=== PATIENT | female | born 2000 | race Two or more races ===

== ENCOUNTER 2018-09-19 23:03 | Emergency (ER) | payer MEDICAID ==
[~2018-09-19] VITALS: Ht 165.1 cm; Wt 66.2 kg
[2018-09-20 00:54] LABS: Basophils # (auto) 0.1 uL; Basophils % (auto) 0.5 % (0.0-2.0); Eosinophils # (auto) 0 uL; Eosinophils % (auto) 0.4 % (0.0-7.0); Hematocrit 41.1 % (36.0-46.0); Hemoglobin 14.1 g/dL (12.2-16.2); Lymphocytes # (auto) 2.2 uL; Lymphocytes % (auto) 19.3 % (10.0-50.0); Mean Corpuscular Hemoglobin 31.4 pg (28.0-32.0); Mean Corpuscular Hgb Conc. 34.3 g/dL (32.0-36.0); Mean Corpuscular Volume 91.8 fL (80.0-100.0); Monocytes # (auto) 0.7 uL; Neutrophils # (auto) 8.6 uL; Neutrophils % (auto) 73.8 % (37.0-80.0); Platelet Count (auto) 242 10^3/uL (140-450); Red Blood Cells 4.48 10^6/uL (4.0-5.20); Red Cell Distribution Width 12.5 % (11.8-14.3); White Blood Cell 11.7 10^3/uL (4.4-10.8)
[2018-09-20 01:04] LABS: Urine Bacteria FEW /hpf (None Seen); Urine Blood Negative /uL (Negative); Urine Mucus FEW (None Seen); Urine Specific Gravity 1.023 (1.001-1.035); Urine WBC 2 /hpf (0 - 5)
[2018-09-20 01:05] LABS: Albumin 3.6 g/dL (3.4-5.0); BUN/Creatinine Ratio 9.3; Calcium 8.6 mg/dL (8.5-10.1); Potassium 3.4 mmol/L (3.5-5.1)
[2018-09-20 01:08] LABS: Bilirubin, Total 0.5 mg/dL (0.2-1.0)
[2018-09-20 01:09] LABS: Total Protein 7.4 g/dL (6.4-8.2)
[2018-09-20] MEDS ORDERED: SODIUM CHLORIDE 0.9% 1,000 ML IV ONE (02:15)
[2018-09-20 02:33] LABS: INR 0.89 (0.9-1.15); Prothrombin Time 9.6 sec (9.27-12.13)
[2018-09-20 06:30] VITALS: BP 94/53
[2018-09-20] MEDS ORDERED: POTASSIUM EFFERVESENT TAB 25 MEQ PO ONE (07:45)
== END 2018-09-20 08:16 | disposition home or self-care (01) ==
LOC: ER 23:14
DX: O99.342 Other mental disorders complicating pregnancy, second trimester (principal); F41.9 Anxiety disorder, unspecified; O99.282 Endocrine, nutritional and metabolic diseases complicating pregnancy, second trimester; E87.6 Hypokalemia; Z3A.19 19 weeks gestation of pregnancy
CPT/HCPCS: 36415; 76805; 80053; 81001; 81025; 83880; 84443; 84484; 84702; 85025; 85610; 85730; 93005; 94761; 99284; J7030

== ENCOUNTER 2018-12-28 07:50 | Observation (INO) | payer MEDICAID ==
[2018-12-28] MEDS ORDERED: PREN-96 PO (10:54)
[2018-12-28] MEDS ORDERED: ACET-6 PO (10:54)
== END 2018-12-28 09:51 | disposition home or self-care (01) | DRG 566 ==
LOC: LDRP 07:50
PROVIDERS: ADMIT Specialist; ATTEND Specialist
DX: O36.0130 Maternal care for anti-D [Rh] antibodies, third trimester, not applicable or unspecified (principal); Z3A.32 32 weeks gestation of pregnancy
CPT/HCPCS: 59025; 76818; 81002; G0378

== ENCOUNTER 2019-01-04 10:31 | Observation (INO) | payer MEDICAID ==
[~2019-01-04] VITALS: Ht 165.1 cm; Wt 73.0 kg
[~2019-01-04 10:31] MED LIST: ACET-6 PO; PREN-96 PO
[2019-01-04] MEDS ORDERED: LACTATED RINGER'S 1,000 ML IV ONE (12:00)
[2019-01-04] MEDS: TERBUTALINE SULFATE 1 MG/ML 1ML VIAL SC SCH ×3 (12:08→13:46)
[2019-01-05] MEDS ORDERED: NIF10C GT (17:47)
== END 2019-01-04 14:45 | disposition home or self-care (01) | DRG 566 ==
LOC: LDRP 10:31
PROVIDERS: ADMIT Specialist; ATTEND Specialist
DX: O36.0130 Maternal care for anti-D [Rh] antibodies, third trimester, not applicable or unspecified (principal); Z3A.33 33 weeks gestation of pregnancy
CPT/HCPCS: 59025; 76818; 81002; 96372; G0378; J3105; 96361

== ENCOUNTER 2019-01-04 18:10 | Observation (INO) | payer MEDICAID ==
[2019-01-04] MEDS ORDERED: NIFEdipine 10 MG CAP ONE (18:24)
[2019-01-04] MEDS ORDERED: BETAMETHASONE ACET (6MG/ML) 5ML VIAL ONE (18:24)
[2019-01-04] MEDS ORDERED: BETAMETHASONE ACET (6MG/ML) 5ML VIAL IM ONE (18:30)
[2019-01-04] MEDS ORDERED: NIFEdipine 10 MG CAP PO ONE (18:30)
[2019-01-05] MEDS ORDERED: NIF10C PO (17:47)
== END 2019-01-04 19:50 | disposition home or self-care (01) | DRG 563 ==
LOC: LDRP 18:10
PROVIDERS: ADMIT Specialist; ATTEND Specialist
DX: O60.03 Preterm labor without delivery, third trimester (principal); Z3A.33 33 weeks gestation of pregnancy
CPT/HCPCS: 59025; 81002; 96372; G0378; J0702

== ENCOUNTER 2019-01-05 17:05 | Observation (INO) | payer MEDICAID ==
[~2019-01-05 17:05] MED LIST changes: -ACET-6 PO
[2019-01-05] MEDS ORDERED: BETAMETHASONE ACET (6MG/ML) 5ML VIAL IM ONE (17:45)
[2019-01-05] MEDS ORDERED: NIF10C GT (17:47)
== END 2019-01-05 18:20 | disposition home or self-care (01) | DRG 563 ==
LOC: LDRP 17:05
PROVIDERS: ADMIT Specialist; ATTEND Specialist
DX: O60.03 Preterm labor without delivery, third trimester (principal); Z3A.33 33 weeks gestation of pregnancy
CPT/HCPCS: 59025; 81002; 96372; G0378; J0702

== ENCOUNTER 2019-01-11 10:43 | Observation (INO) | payer MEDICAID ==
[~2019-01-11 10:43] MED LIST changes: +NIF10C PO
== END 2019-01-11 12:30 | disposition home or self-care (01) | DRG 563 ==
LOC: LDRP 10:43
PROVIDERS: ADMIT Obstetrics & Gynecology; ATTEND Obstetrics & Gynecology
DX: O60.03 Preterm labor without delivery, third trimester (principal); O36.0130 Maternal care for anti-D [Rh] antibodies, third trimester, not applicable or unspecified; Z3A.34 34 weeks gestation of pregnancy
CPT/HCPCS: 59025; 76818; 81002; G0378

== ENCOUNTER 2019-01-16 13:10 | Observation (INO) | payer MEDICAID ==
[2019-01-16] MEDS ORDERED: ACET-1079 PO (13:48)
== END 2019-01-16 14:30 | disposition home or self-care (01) | DRG 566 ==
LOC: LDRP 13:10
PROVIDERS: ADMIT Obstetrics & Gynecology; ATTEND Obstetrics & Gynecology
DX: O36.0130 Maternal care for anti-D [Rh] antibodies, third trimester, not applicable or unspecified (principal); Z3A.35 35 weeks gestation of pregnancy
CPT/HCPCS: 59025; 76818; 81002; G0378

== ENCOUNTER 2019-01-18 14:50 | Observation (INO) | payer MEDICAID ==
[~2019-01-18 14:50] MED LIST changes: +ACET-1079 PO
== END 2019-01-18 16:28 | disposition home or self-care (01) | DRG 566 ==
LOC: LDRP 14:50
PROVIDERS: ADMIT Obstetrics & Gynecology; ATTEND Obstetrics & Gynecology
DX: O36.0130 Maternal care for anti-D [Rh] antibodies, third trimester, not applicable or unspecified (principal); O26.893 Other specified pregnancy related conditions, third trimester; R51 Headache; Z3A.35 35 weeks gestation of pregnancy
CPT/HCPCS: 59025; 76818; 81002; G0378

== ENCOUNTER 2019-01-23 14:05 | Observation (INO) | payer MEDICAID ==
[~2019-01-23] VITALS: Ht 165.1 cm; Wt 77.1 kg
[2019-01-23] MEDS ORDERED: BETAMETHASONE ACET (6MG/ML) 5ML VIAL IM SCH (15:15)
== END 2019-01-23 15:50 | disposition home or self-care (01) | DRG 566 ==
LOC: LDRP 14:05
PROVIDERS: ADMIT Obstetrics & Gynecology; ATTEND Obstetrics & Gynecology
DX: O36.0130 Maternal care for anti-D [Rh] antibodies, third trimester, not applicable or unspecified (principal); O60.03 Preterm labor without delivery, third trimester; O26.853 Spotting complicating pregnancy, third trimester; Z3A.36 36 weeks gestation of pregnancy
CPT/HCPCS: 59025; 76818; 81002; G0378

== ENCOUNTER 2019-01-26 01:36 | Inpatient (IN) | payer MEDICAID ==
[~2019-01-26] VITALS: Ht 165.1 cm; Wt 76.7 kg
[2019-01-26] MEDS ORDERED: LACT. RINGERS/OXYTOCIN 20UNITS 1,000 ML IV SCH ×2 (02:31→07:19)
[2019-01-26] MEDS: LACTATED RINGER'S 1,000 ML IV SCH ×3 (02:41→15:12)
[2019-01-26] MEDS ORDERED: PHISODERM TOP SOLN 240ML BTL TOP PRN (02:45)
[2019-01-26] MEDS ORDERED: NALBUPHINE HCL 10 MG/1ml INJECTION IV PRN (02:45)
[2019-01-26] MEDS ORDERED: LIDOCAINE 2%HCL (LOCAL ANESTH.) INJ 20ML MDV ID ONE (02:45)
[2019-01-26] MEDS ORDERED: METHYLERGONOVINE MALEATE 0.2 MG/ML AMP IM PRN (02:45)
[2019-01-26] MEDS ORDERED: WITCH HAZEL-GLYCERIN PAD TOP PRN (02:45)
[2019-01-26] MEDS ORDERED: DERMOPLAST 60ML BOTTLE TOP PRN (02:45)
[2019-01-26] MEDS ORDERED: CARBOPROST TROMETHAMINE 250 MCG/1ML VIAL IM PRN (02:45)
[2019-01-26] MEDS ORDERED: PENICILLIN G POT 5MIL/D5 50ML 50 ML IV ONE ×2 (02:47→03:00)
[2019-01-26 03:22] LABS: Basophils # (auto) 0 uL; Basophils % (auto) 0.3 % (0.0-2.0); Eosinophils # (auto) 0.1 uL; Eosinophils % (auto) 0.9 % (0.0-7.0); Hematocrit 37.8 % (36.0-46.0); Hemoglobin 13.1 g/dL (12.2-16.2); Lymphocytes # (auto) 2.1 uL; Lymphocytes % (auto) 17.8 % (10.0-50.0); Mean Corpuscular Hemoglobin 31.9 pg (28.0-32.0); Mean Corpuscular Hgb Conc. 34.7 g/dL (32.0-36.0); Mean Corpuscular Volume 91.9 fL (80.0-100.0); Monocytes # (auto) 0.9 uL; Monocytes % (auto) 7.4 % (0.0-12.0); Neutrophils # (auto) 8.7 uL; Neutrophils % (auto) 73.6 % (37.0-80.0); Platelet Count (auto) 252 10^3/uL (140-450); Red Blood Cells 4.11 10^6/uL (4.0-5.20); Red Cell Distribution Width 12.5 % (11.8-14.3); White Blood Cell 11.8 10^3/uL (4.4-10.8)
[2019-01-26 03:38] LABS: INR 0.83 (0.9-1.15); Partial Thromboplastin Time 25.9 sec (23.78-33.04)
[2019-01-26 03:44] LABS: Albumin 2.9 g/dL (3.4-5.0); Calcium 8.9 mg/dL (8.5-10.1)
[2019-01-26 03:47] LABS: BUN/Creatinine Ratio 15.8; Bilirubin, Total 0.3 mg/dL (0.2-1.0); Total Protein 6.6 g/dL (6.4-8.2)
[2019-01-26 03:59] LABS: Urine Bacteria FEW /hpf (None Seen); Urine Blood Negative /uL (Negative); Urine Specific Gravity 1.006 (1.001-1.035); Urine WBC 22 /hpf (0 - 5)
[2019-01-26 04:01] LABS: Alcohol, Urine < 3.0 mg/dL (0-5); Amphetamine Screen, Urine NEGATIVE (NEGATIVE); Barbiturate Scree,Urine NEGATIVE (NEGATIVE); Benzodiazephine Screen, Urine NEGATIVE (NEGATIVE); Cannabinoid Screen, Urine NEGATIVE (NEGATIVE); Cocaine Screen, Urine NEGATIVE (NEGATIVE); Opiate Scree,Urine NEGATIVE (NEGATIVE); Phencyclidine Screen, Urine NEGATIVE (NEGATIVE)
[2019-01-26] MEDS: PENICILLIN G POTASSIUM 2,500,000 UNITS in D5W 5% 50 ML IV SCH ×3 (07:26→16:30)
[2019-01-26] MEDS ORDERED: TERBUTALINE SULFATE 1 MG/ML 1ML VIAL SC PRN (07:30)
[2019-01-26] MEDS ORDERED: LACTATED RINGER'S 500 ML IV ONE (07:48)
[2019-01-26] MEDS ORDERED: LACTATED RINGER'S 1,000 ML IV ONE (07:48)
[2019-01-26] MEDS ORDERED: fentaNYL CITRATE 100 MCG/2 ML VL IV ONE (08:00)
[2019-01-26] MEDS ORDERED: LIDOCAINE HCL 2 %PF INJ 10ML AMP IJ ONE (08:00)
[2019-01-26] MEDS ORDERED: ePHEDrine SULFATE 50 MG/ML AMP IV ONE (08:00)
[2019-01-26] MEDS ORDERED: NALOXONE HCL 0.4 MG/ML VIAL IV ONE (08:00)
[2019-01-26] MEDS ORDERED: fentaNYL W ROPIVACAINE 150 ML EPI SCH (08:00)
[2019-01-26] MEDS ORDERED: LIDOCAINE W/ EPINEPHRINE 1 % INJ 30ML ONE (08:38)
[2019-01-26] MEDS ORDERED: ONDANSETRON HCL 4 MG/2 ML VIAL ONE (18:38)
[2019-01-26] MEDS ORDERED: ONDANSETRON HCL 4 MG/2 ML VIAL IV PRN (18:45)
[2019-01-26 23:00] VITALS: BP 98/57
[2019-01-27] MEDS: IBUPROFEN 600 MG TAB PO PRN ×3 (01:12→18:38)
[2019-01-27] MEDS ORDERED: ACETAMINOPHEN 325 MG TAB PO PRN (01:15)
[2019-01-27 02:57] VITALS: BP 100/50
[2019-01-27 06:06] LABS: RPR Non Reactive (Non Reactive)
[2019-01-27 07:00] VITALS: BP 92/52
[2019-01-27 11:00] VITALS: BP 99/53
[2019-01-27 15:00] VITALS: BP 106/59
[2019-01-27 18:52] VITALS: BP 117/55
[2019-01-27 22:55] VITALS: BP 106/57
[2019-01-28] MEDS: IBUPROFEN 600 MG TAB PO PRN ×2 (01:10→04:43)
[2019-01-28 03:00] VITALS: BP 94/56
[2019-01-28 06:40] VITALS: BP 90/48
[2019-01-28] MEDS ORDERED: TETANUS-DIPTH-ACEL PERTUSSIS 0.5ML SYRG IM ONE (09:00)
[2019-01-28 11:13] VITALS: BP 111/65
== END 2019-01-28 11:40 | disposition home or self-care (01) | DRG 560 ==
LOC: OBSVTOIN 01:36 → LDRP 01:36
PROVIDERS: ADMIT Specialist; ATTEND Specialist
PROC: 10E0XZZ Delivery of Products of Conception, External Approach (ICD-10-PCS; principal; 2019-01-26)
PROC: 3E0R3BZ Introduction of Anesthetic Agent into Spinal Canal, Percutaneous Approach (ICD-10-PCS; 2019-01-26)
PROC: 00HU33Z Insertion of Infusion Device into Spinal Canal, Percutaneous Approach (ICD-10-PCS; 2019-01-26)
PROC: 0HQ9XZZ Repair Perineum Skin, External Approach (ICD-10-PCS; 2019-01-26)
DX: O42.913 Preterm premature rupture of membranes, unspecified as to length of time between rupture and onset of labor, third trimester (principal); O70.0 First degree perineal laceration during delivery; O71.82 Other specified trauma to perineum and vulva; Z37.0 Single live birth; Z3A.36 36 weeks gestation of pregnancy
CPT/HCPCS: 36415; 51702; 59025; 59409; 62282; 80053; 80307; 81001; 81002; 85025; 85610; 85730; 86592; 86850; 86900; 86901; 90715; 96361; 96365; 96366; 96372; 96374; G0378; J2405; J2540; J2590; J3010; J7060

== ENCOUNTER 2025-02-18 14:41 | Emergency (ER) | payer MEDICAID ==
[~2025-02-18] VITALS: Ht 165.1 cm; Wt 78.7 kg
[~2025-02-18 14:41] MED LIST changes: -NIF10C PO
[2025-02-18 15:34] LABS: Urine Bacteria None Seen /hpf (None Seen)
[2025-02-18 16:00] LABS: Urine Blood 2+ /uL (Negative); Urine Clarity Clear (Clear); Urine Color Light-Yellow (Yellow); Urine Mucus FEW (None Seen); Urine Protein, UAD Negative (Negative); Urine Specific Gravity 1.022 (1.001-1.035); Urine Squamous Epithelial Cell FEW /hpf (<5); Urine Urobilinogen Normal (Negative); Urine WBC 2 /HPF (0-5); Urine pH 5.5 (5.0-9.0)
--- NOTE | 2025-02-18 19:13 | DVH ---
OB ULTRASOUND US OB ULTRASOUND COMP LESS 14WK HISTORY: vag bleed TECHNIQUE: US OB ULTRASOUND COMP LESS 14WKS Multiple real-time grayscale sonographic images of the pelvis with duplex Doppler color flow, spectral and M-mode analysis. TRANSDUCERS: Transabdominal FINDINGS: The uterus measures 9.9 x 6.6 x 6.1 cm The cervix not measured Right ovary measures 2.5 x 1.9 x 1.2 cm. with normal Doppler color flow. Right ovarian volume is 2.8 3 cc. Left ovary measures 3.6 x 2 x 1.9 cm. with normal Doppler color flow. Ovarian volume is 7.08 cc in t he left ovary is a 1.3 x 1.1 by 1 cm anechoic lesion most likely a follicle There is a possible gestational sac in the endometrium measuring 3.23 cm. This would be consistent wi th 8 weeks 2 days however there is no pole heart rate. Most likely represents an anamniot ic gestational sac or pseudo gestational sac. IMPRESSION: 1. Possible gestational sac measuring 3.23 cm with no pole or heart rate. Recommend follo w-up study.
--- NOTE | 2025-02-18 19:45 | ED.PDOC ---
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 Denies any cramping. States it started as light bleeding then continued to progress to get mildly heavier. Patient states she was six weeks . She was seen by doctors and last week. States she was A2 Chief Complaint: Vaginal Bleed Time Seen by MD: 15:21 Reviewed Notes: Nurses Notes Allergies: Coded Allergies: NO KNOWN ALLERGIES (Unverified , 09/19/18) Home Meds Reported Medications Acetaminophen (Tylenol) 325 Mg Tb, 325 MG PO PRN for headache 01/16/19 Vit W/ Ferrous Fumara ( One Daily) Daily Tab, 1 TAB PO DAILY, #90 TAB 3 Refills 12/28/18 Information Source: Patient Past Medical History PAST MEDICAL HISTORY: Denies Surgical History: Denies all surgeries FINANCE LEAD History: No Pertinent FINANCE LEAD History Family History Family History: Unobtainable Social History Smoker: Non-Smoker Alcohol: Denies ETOH Use Drugs: Denies Drug Use Lives In: Home Constitutional: denies: chills, diaphoresis, fatigue, fever, malaise, sweats, weakness, others EENTM: denies: blurred vision, double vision, ear bleeding, ear discharge, ear drainage, ear pain, ear ringing, eye pain, eye redness, hearing loss, mouth madeleine n, mouth swelling, nasal discharge, nose bleeding, nose congestion, nose pain, photophobia, tearing, throat pain, throat swelling, voice changes, others Respiratory: denies: cough, hemoptysis, orthopnea, SOB at rest, shortness of breath, SOB with excertion, stridor, wheezing, others Cardiovascular: denies: chest pain, dizzy spells, diaphoresis, Dyspnea on exertion, edema, irregular heart beat, left arm pain, lightheadedness, palpitations, PND, syncope, others Gastrointestinal: denies: abdomen distended, abdominal pain, blood streaked bowels, constipated, diarrhea, dysphagia, difficulty swallowing, hematemesis, melena, nausea, poor appetite, poor fluid intake, rectal bleeding, rectal pain, vomiting, others Genitourinary: reports: abnormal vagina bleeding; denies: burning, dyspareunia, dysuria, flank pain, frequency, hematuria, incontinence, pain, , vagina discharge, urgency, others Neurological: denies: dizziness, fainting, headache, left sided numbness, left sided weakness, numbness, paresthesia, pre-existing deficit, right sided numbness, right sided weakness, seizure, speech problems, tingling, tremors, weakness, others Musculoskeletal: denies: back pain, gout, joint pain, joint swelling, muscle pain, muscle stiffness, neck pain, others Integumetry: denies: bruises, change in color, change in hair/nails, dryness, laceration, lesions, lumps, rash, wounds, others Allergic/Immunocompromised: denies: Difficulty Healing, Frequent Infections, Hives, Itching, others Hematologic/Lymphatic: denies: anemia, blood clots, easy bleeding, easy bruisin g, swollen glands, others Physical Exam General Appearance: No Apparent Distress, Normal HEENT: Normal ENT Inspection, Pharynx Normal, TMs Normal Neck: Full Range of Motion, Non-Tender, Normal, Normal Inspection Respiratory: Chest Non-Tender, Lungs Clear, No Accessory Muscle Use, No Respiratory Distress, Normal Breath Sounds Cardiovascular: No Edema, No JVD, No Murmur, No Gallop, Normal Peripheral Pulses, Regular Rate/Rhythm Breast Exam: Deferred Gastrointestinal: No Organomegaly, Non Tender, No Pulsatile Mass, Normal Bowel Sounds, Soft Genitalia: Deferred Pelvic: Deferred Rectal: Deferred Extremities: No calf tenderness, Normal capillary refill, Normal inspection, Normal range of motion, Non-tender, No pedal edema Musculoskeletal : Apperance: Normal Neurologic: Alert, recorder helper gravity prospecting II-XII nml as Tested, No Motor Deficits, Normal Affect, Normal Mood, No Sensory Deficits Cerebellar Function: Normal Reflexes: Normal Skin: Dry, Normal Color, Warm Lymphatic: No Adenopathy Was a procedure done? Was a procedure done?: No Differential Diagnosis (FINANCE LEAD) Vaginal Bleeding: - Complete, - Threatened, Ectopic X-Ray, Labs, Meds, VS Vital Signs Date Time Temp Pulse Resp B/P (MAP) Pulse Ox O2 Delivery O2 Flow Rate FiO2 02/18/25 14:59 98.0 98 80 121/86 (98) 97 98.0 Lab Test 02/18/25 16:19 02/18/25 15:14 Range/Units Beta HCG, Quantitative 3314.3 H 1.5-4.2 mIU/mL Urine Color Light-yellow Yellow Urine Clarity Clear Clear Urine pH 5.5 5.0-9.0 Urine Specific [place] 1.022 1.001-1.035 Urine Protein Negative Negative Urine Ketones Negative Negative Urine Blood 2+ H Negative /uL Urine Nitrite Negative Negative Urine Bilirubin Negative Negative Urine Urobilinogen Normal Negative mg/dL Urine Leukocyte Esterase Negative Negative /uL Urine RBC 4 0 - 4 /hpf Urine Microscopic WBC 2 0-5 /HPF Urine Squamous Epithelial Cells Few <5 /hpf Urine Calcium Oxalate Crystals Mod None Seen Urine Bacteria None seen None Seen /hpf Urine Mucus Few None Seen Urine Glucose Normal Normal mg/dL X-Ray, Labs, Meds, VS Comment Imaging: X-rays and CT scans were reviewed and interpreted by this provider, imaging shows no fractures and no pathological disease. Pending radiology review. Laboratory: Labs reviewed and interpreted by this provider. No significant ab normalities noted. Patient has prior medical visits reviewed. Med reconciliation performed Vital signs reviewed Time of 1ST Reevaluation: 19:44 Reevaluation 1ST: Unchanged Patient Education/Counseling: Diagnosis, Treatment, Need For Follow Up (Follow up with OBGYN next available appointment. Return to emergency department two days if unable to make appointment.) Family Education/Counseling: Diagnosis Departure 1 Departure Time of Disposition: 19:44 Impression: Primary Impression: Miscarriage at 8 to 28 weeks gestation Disposition: 01 HOME / SELF CARE / HOMELESS Condition: Fair Discharged With: Self Comments Follow up with OBGYN next available appointment. Return to the emergency department in the next 24 hours if symptoms worsen. Critical Care Note Critical Care Time?: No Stability Stability form required: No Heart Score Heart Score: Heart Score Response (Comments) Value History N/A 0 EKG N/A 0 Age N/A 0 Risk Factors N/A 0 Troponin N/A 0 Total 0 ARTURO SIMONP Feb 18, 2025 19:45
[2025-02-18 20:18] VITALS: BP 150/98; PULSE 100; RESP 21; TEMP 98.8; O2SAT 97
== END 2025-02-18 20:21 | disposition home or self-care (01) ==
LOC: ER 14:59
DX: O20.0 Threatened abortion (principal); Z3A.08 8 weeks gestation of pregnancy
CPT/HCPCS: 36415; 76801; 81001; 84702

== ENCOUNTER 2025-02-26 08:32 | Inpatient (IN) | payer MEDICAID ==
[~2025-02-26] VITALS: Ht 165.1 cm; Wt 76.2 kg
[2025-02-26] VITALS (21 sets, daily range): BP systolic 90–102; BP diastolic 40–63; PULSE 86–124; RESP 14–20; TEMP 98.3–99.4; O2SAT 97–100
--- NOTE | 2025-02-26 08:53 | ED.PDOC ---
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 Patient states, that she was told x1week ago to have miscarried; previous 10 week IUP. Patient reports, that of 0500 this morning (02/26/25) she has been bleeding with associated golf ball sized clots. Patient endorses, having an appointment with her OB-SPEECH AND HEARING DIRECTOR (Dr. Hernandez) today (02/26/25); was relayed to the ED for further evaluation due to symptoms. Upon arrival to the ED, transferred to ER bed 2 for further care. Chief Complaint: Vaginal Bleed Time Seen by MD: 08:44 Reviewed Notes: Nurses Notes, Medications, Allergies Allergies: Coded Allergies: NO KNOWN ALLERGIES (Unverified , 09/19/18) Home Meds Reported Medications Acetaminophen (Tylenol) 325 Mg Tb, 325 MG PO PRN for headache 01/16/19 Vit W/ Ferrous Fumara ( One Daily) Daily Tab, 1 TAB PO DAILY, #90 TAB 3 Refills 12/28/18 Information Source: Patient Mode of Arrival: Wheelchair Timing: Hours Prehospital treatment: None Severity: Moderate Vaginal Discharge: None Vaginal Lesions: None Bleeding Quality: Bright Red Vaginal Mass: Painful Onset Of Mass/Bleeding: Other (MISCARRIAGE) Sexual Activity: Last Consensual [place]: Unknown Control: None Blood Type: Unknown Symptoms of Possible : None Associated Signs and Symptoms: Vaginal Bleeding Past Medical History PAST MEDICAL HISTORY: Denies Surgical History: Denies all surgeries SPEECH AND HEARING DIRECTOR History: No Pertinent SPEECH AND HEARING DIRECTOR History Family History Family History: Unobtainable Social History Smoker: Non-Smoker Alcohol: Denies ETOH Use Drugs: Denies Drug Use Lives In: Home Constitutional: denies: chills, diaphoresis, fatigue, fever, malaise, sweats, weakness, others EENTM: denies: blurred vision, double vision, ear bleeding, ear discharge, ear drainage, ear pain, ear ringing, eye pain, eye redness, hearing loss, mouth pain, mouth swelling, nasal discharge, nose bleeding, nose congestion, nose pain, photophobia, tearing, throat pain, throat swelling, voice changes, others Respiratory: denies: cough, hemoptysis, orthopnea, SOB at rest, shortness of breath, SOB with excertion, stridor, wheezing, others Cardiovascular: denies: chest pain, dizzy spells, diaphoresis, Dyspnea on exertion, edema, irregular heart beat, left arm pain, lightheadedness, palpitations, PND, syncope, others Gastrointestinal: denies: abdomen distended, abdominal pain, blood streaked bowels, constipated, diarrhea, dysphagia, difficulty swallowing, hematemesis, melena, nausea, poor appetite, poor fluid intake, rectal bleeding, rectal pain, vomiting, others Genitourinary: reports: abnormal vagina bleeding; denies: burning, dyspareunia, dysuria, flank pain, frequency, hematuria, incontinence, pain, , vagina discharge, urgency, others Neurological: denies: dizziness, fainting, headache, left sided numbness, left sided weakness, numbness, paresthesia, pre-existing deficit, right sided numbness, right sided weakness, seizure, speech problems, tingling, tremors, weakness, others Musculoskeletal: denies: back pain, gout, joint pain, joint swelling, muscle pain, muscle stiffness, neck pain, others Integumetry: denies: bruises, change in color, change in hair/nails, dryness, laceration, lesions, lumps, rash, wounds, others Allergic/Immunocompromised: denies: Difficulty Healing, Frequent Infections, Hives, Itching, others Hematologic/Lymphatic: denies: anemia, blood clots, easy bleeding, easy bruising, swollen glands, others Endocrine: denies: excessive hunger, excessive sweating, excessive thirst, excessive urination, flushing, intolerance to cold, intolerance to heat, unexplained weight gain, unexplained weight loss, others Psychiatric: denies: anxiety, bipolar disorder, depression, hopeless, panic disorder, schizophrenia, sleepless, suicidal, others All Other Systems: Reviewed and Negative Physical Exam General Appearance: Mild Distress, Normal, Other ([place]) HEENT: Normal ENT Inspection, Pharynx Normal, TMs Normal Neck: Full Range of Motion, Non-Tender, Normal, Normal Inspection Respiratory: Chest Non-Tender, Lungs Clear, No Accessory Muscle Use, No Respiratory Distress, Normal Breath Sounds Cardiovascular: No Edema, No Murmur, No Gallop, Normal Peripheral Pulses, Tachycardia Breast Exam: Deferred Gastrointestinal: No Organomegaly, Non Tender, No Pulsatile Mass, Normal Bowel Sounds, Soft Genitalia: Deferred Pelvic: Deferred Rectal: Deferred Extremities: No calf tenderness, Normal capillary refill, Normal inspection, Normal range of motion, Non-tender, No pedal edema Musculoskeletal : Apperance: Normal Neurologic: Alert, supplier quality manager II-XII nml as Tested, No Motor Deficits, Normal Affect, Normal Mood, No Sensory Deficits Cerebellar Function: Normal Reflexes: Normal Skin: Dry, Normal Color, Warm Lymphatic: No Adenopathy Was a procedure done? Was a procedure done?: No Differential Diagnosis (SPEECH AND HEARING DIRECTOR) Vaginal Bleeding: - Incomplete X-Ray, Labs, Meds, VS Vital Signs Date Time Temp Pulse Resp B/P (MAP) Pulse Ox O2 Delivery O2 Flow Rate FiO2 02/26/25 09:17 Room Air* 0 21 02/26/25 09:17 97.8 108 18 111/65 (80) 100 97.8 02/26/25 08:37 97.9 134 20 92/42 (59) 98 97.9 86/50 (62) Lab Test 02/26/25 10:22 02/26/25 08:56 Range/Units Lactic Acid Level Pending White Blood Count 22.4 H 4.4-10.8 10^3/uL Red Blood Count 3.97 L 4.0-5.20 10^6/uL Hemoglobin 12.3 12.2-16.2 g/dL Hematocrit 35.9 L 36.0-46.0 % Mean Corpuscular Volume 90.4 80.0-100.0 fL Mean Corpuscular Hemoglobin 31.0 28.0-32.0 pg Mean Corpuscular Hemoglobin Concent 34.3 32.0-36.0 g/dL Red Cell Distribution Width 12.7 11.8-14.3 % Platelet Count 376 140-450 10^3/uL Mean Platelet Volume 8.3 6.9-10.8 fL Neutrophils (%) (Auto) 80.2 H 37.0-80.0 % Lymphocytes (%) (Auto) 14.8 10.0-50.0 % Monocytes (%) (Auto) 4.3 0.0-12.0 % Eosinophils (%) (Auto) 0.3 0.0-7.0 % Basophils (%) (Auto) 0.4 0.0-2.0 % Neutrophils # (Auto) 18.0 H 1.6-8.6 10 ^3/uL Lymphocytes # (Auto) 3.3 0.4-5.4 10 ^3/uL Monocytes # (Auto) 1.0 0-1.3 10 ^3/uL Eosinophils # (Auto) 0.1 0-0.8 10 ^3/uL Basophils # (Auto) 0.1 0-0.2 10 ^3/uL Nucleated Red Blood Cells 0.0 % Prothrombin Time 10.2 9.3-11.8 sec Prothrombin Time INR 0.96 0.9-1.15 Activated Partial Thromboplast Time 23.8 L 24.5-34.5 SEC Sodium Level 140 136-145 mmol/L Potassium Level 3.8 3.5-5.1 mmol/L Chloride Level 106 98-107 mmol/L Carbon Dioxide Level 23 20-31 mmol/L Anion Gap 11 5-15 Blood Urea Nitrogen 8 L 9-23 mg/dL Creatinine 0.60 0.550-1.02 mg/dL Glomerular Filtration Rate Calc 127 >90 mL/min BUN/Creatinine Ratio 13.3 10.0-20.0 Serum Glucose 151 H 74-106 mg/dL Calcium Level 9.0 8.7-10.4 mg/dL Beta HCG, Quantitative 355.1 H 1.5-4.2 mIU/mL Current Medications Medications (Trade) Dose Ordered Sig/Anna Marie Route Start Time Stop Time Status Last Admin Sodium Chloride 1,000 ml @ 1,000 mls/hr Q1H ONCE IV 02/26/25 09:00 02/26/25 09:59 DC 02/26/25 09:11 Ondansetron HCl (Zofran) 4 mg ONCE ONCE IV 02/26/25 10:00 02/26/25 10:01 DC 02/26/25 09:51 Time of 1ST Reevaluation: 10:56 Reevaluation 1ST: Improved Patient Education/Counseling: Diagnosis, Treatment Family Education/Counseling: No Family Present Departure 1 Departure Time of Disposition: 10:47 (Patient with a incomplete miscarriage who is hypotensive but responded to fluids. With the patient for further workup and OB consultation) Impression: Primary Impression: Incomplete miscarriage Disposition: ADMITTED INPATIENT Admit to: Med Surg Condition: Serious Critical Care Note Critical Care Time?: Yes Critical care comment: Hypotensive Authorized and Performed by: Mae Ramon MD Total critical care time: Approximately 38 minutes Due to a high probability of clinically significant, life threatening deterioration, the patient required my highest level of preparedness to intervene emergently and I personally spent this critical care time directly and personally managing the patient. This critical care time included obtaining a history; examining the patient; pulse oximetry; ordering and review of studies; arranging urgent treatment with development of a management plan; evaluation of patient's response to treatment; frequent reassessment; and, discussions with other providers. This critical care time was performed to assess and manage the high probability of imminent, life-threatening deterioration that could result in multi-organ failure. It was exclusive of separately billable procedures and treating other patients and teaching time. Please see my other sections and the rest of the note for further information on patient assessment and treatment. Stability Stability form required: No Heart Score Heart Score: Heart Score Response (Comments) Value History N/A 0 EKG N/A 0 Age N/A 0 Risk Factors N/A 0 Troponin N/A 0 Total 0 I personally scribed for MAE RAMON MD ([email or web address]) on 02/26/25 at 08:53. Electronically submitted by Gwendolyn Lorenz ([email or web address]). MAE RAMON MD February 26, 2025 08:53
[2025-02-26] MEDS: SODIUM CHLORIDE 0.9% 1,000 ML IV ONE (09:11)
[2025-02-26 09:19] LABS: Basophils # (auto) 0.1 10 ^3/uL (0-0.2); Basophils % (auto) 0.4 % (0.0-2.0); Eosinophils # (auto) 0.1 10 ^3/uL (0-0.8); Eosinophils % (auto) 0.3 % (0.0-7.0); Hematocrit 35.9 % (36.0-46.0); Hemoglobin 12.3 g/dL (12.2-16.2); Lymphocytes # (auto) 3.3 10 ^3/uL (0.4-5.4); Lymphocytes % (auto) 14.8 % (10.0-50.0); Mean Corpuscular Hgb Conc. 34.3 g/dL (32.0-36.0); Mean Corpuscular Volume 90.4 fL (80.0-100.0); Monocytes % (auto) 4.3 % (0.0-12.0); Neutrophils % (auto) 80.2 % (37.0-80.0); Platelet Count (auto) 376 10^3/uL (140-450); Red Blood Cells 3.97 10^6/uL (4.0-5.20); Red Cell Distribution Width 12.7 % (11.8-14.3); White Blood Cell 22.4 10^3/uL (4.4-10.8)
[2025-02-26 09:27] LABS: Chloride 106 mmol/L (98-107); Potassium 3.8 mmol/L (3.5-5.1); Sodium 140 mmol/L (136-145)
[2025-02-26 09:28] LABS: Anion Gap 11 (5-15); Carbon Dioxide 23 mmol/L (20-31)
[2025-02-26 09:33] LABS: BUN/Creatinine Ratio 13.3 (10.0-20.0)
[2025-02-26 09:34] LABS: INR 0.96 (0.9-1.15); Partial Thromboplastin Time 23.8 SEC (24.5-34.5); Prothrombin Time 10.2 sec (9.3-11.8)
[2025-02-26 09:36] LABS: Blood Urea Nitrogen 8 mg/dL (9-23); Glucose 151 mg/dL (74-106)
[2025-02-26] MEDS: ONDANSETRON HCL 4 MG/2 ML VIAL IV ONE (09:51)
[2025-02-26] MEDS: LACT. RINGERS/OXYTOCIN 20UNITS 1,000 ML IV ONE (14:18)
[2025-02-26] MEDS ORDERED: NITROGLYCERIN 0.4 MG SL TAB SL PRN (14:30)
[2025-02-26] MEDS ORDERED: DOCUSATE SOD 100 MG CAP PO PRN (14:30)
[2025-02-26] MEDS ORDERED: ONDANSETRON HCL 4 MG/2 ML VIAL IV PRN (14:30)
[2025-02-26] MEDS ORDERED: cefTRIAXone 1GM/50ML D5W 50 ML IV ONE (14:30)
[2025-02-26] MEDS ORDERED: MORPHINE SULFATE INJ 2 MG/ml SYRG IV PRN (14:30)
--- NOTE | 2025-02-26 14:34 | DVHHP2 ---
History of Present Illness Reason for Visit: vaginal bleed after miscarriage History of Present Illness 24-year-old female who presents to the ED following referral from the [facility] for evaluation of heavy vaginal bleeding with clots and pain, after a recent miscarriage approximately 1011 days ago. She reports passing a large clot around 5:00 AM this morning, which prompted her follow-up visit to [facility]. During her ED evaluation, RELIGIOUS STUDIES PROFESSOR manually removed a clot from the vaginal vault. She endorses ongoing pelvic discomfort and weakness. In the ED, labs showed WBC 22.4, glucose 151, lactate 5.0 (suggestive of poor perfusion or stress), and - hCG 355.1. CBC and CMP were otherwise unremarkable. Ultrasound was ordered; results are pending. Patient received 1 unit of PRBCs in the ED for presumed anemia due to blood loss. She is being admitted to [facility] for further monitoring and management of suspected incomplete , blood loss, and potential need for additional gynecologic intervention. Past Medical History See HPI above Past Surgical History See HPI above Family History Reviewed, non-contributory to the management of this case. Past Social History The patient lives at home, denies smoking, alcohol or illicit drugs abuse. Review of Systems Constitutional: No: Fever, Chills, Sweats, Weakness, Malaise, Other Eyes: No: Pain, Vision change, Conjunctivae inflammation, Eyelid inflammation, Other, Redness ENT: No: Ear pain, Ear discharge, Nose pain, Nose discharge, Nose congestion, Mouth pain, Mouth swelling, Throat pain, Throat swelling, Other Respiratory: No: Cough, Dry, Shortness of breath, SOB with excertion, Wheezing, Hemoptysis, Pleuritic Pain, Sputum, Wheezing, Other Cardiovascular: No: Chest Pain, Palpitations, Orthopnea, Paroxysmal Noc. Dyspnea, Edema, Lt Headedness, Other Gastrointestinal: Abdominal Pain; No: Nausea, Vomiting, Diarrhea, Constipation, Melena, Hematochezia, Other Genitourinary: No Dysuria, No Frequency, No Incontinence, No Hematuria, No Retention; Other (Vaginal bleed) Musculoskeletal: No: other, neck pain, shoulder pain, arm pain, back pain, hand pain, leg pain, foot pain Skin: No: Rash, Lesions, Jaundice, Bruising, Other Neurological: Weakness; No: Numbness, Incoordination, Change in speech, Confusion, Seizures, Other Allergies: Coded Allergies: NO KNOWN ALLERGIES (Unverified , 09/19/18) Medications Current Medications Medications Dose Ordered Sig/Anna Marie Route Start Time Stop Time Status Last Admin Dose Admin Sodium Chloride 1,000 ml @ 120 mls/hr Q8H20M IV 02/26/25 14:30 UNV Ondansetron HCl 4 mg Q4HP PRN IV 02/26/25 14:30 UNV Docusate Sodium 100 mg BIDPRN PRN PO 02/26/25 14:30 UNV Morphine Sulfate 2 mg Q4HPRN PRN IV 02/26/25 14:30 UNV Nitroglycerin 0.4 mg Q5MINP PRN SL 02/26/25 14:30 UNV Piperacillin Sod/ Tazobactam Sod 100 ml @ 25 mls/hr Q6HR IV 02/26/25 18:00 UNV Exam Vital Signs Vital Signs Date Time Temp Pulse Resp B/P (MAP) Pulse Ox O2 Delivery O2 Flow Rate FiO2 02/26/25 12:15 98.5 124 18 95/51 98.5 02/26/25 09:17 Room Air* 0 21 02/26/25 09:17 100 General Appearance: Alert, Other (Crying on exam) HEENT: Atraumatic, PERRLA, EOMI, Mucous membr. moist/pink Respiratory: Clear to auscultation, Normal air movement Cardiovascular: Regular rate, Normal S1, Normal S2, No murmurs Abdominal: Normal bowel sounds, Soft, No tenderness, No hepatospenomegaly, No masses, Other ( no vaginal hemorrhage seen) Extremities: No clubbing, No cyanosis, No edema, Normal pulses, No tender ness/swelling Skin: No rashes, No breakdown, No significant lesion Neuro: Normal speech, Other (Neuro nonfocal) Psych/Mental Status: Mental status NL, Mood NL Labs/Xrays I reviewed labs, imaging CT scan abdomen pelvis, EKG and all diagnostic studies on this patient from ED records and the medical chart Labs Test 02/26/25 10:22 02/26/25 08:56 Range/Units Lactic Acid Level 5.0 *H 0.4-2.0 mmol/L White Blood Count 22.4 H 4.4-10.8 10^3/uL Red Blood Count 3.97 L 4.0-5.20 10^6/uL Hemoglobin 12.3 12.2-16.2 g/dL Hematocrit 35.9 L 36.0-46.0 % Mean Corpuscular Volume 90.4 80.0-100.0 fL Mean Corpuscular Hemoglobin 31.0 28.0-32.0 pg Mean Corpuscular Hemoglobin Concent 34.3 32.0-36.0 g/dL Red Cell Distribution Width 12.7 11.8-14.3 % Platelet Count 376 140-450 10^3/uL Mean Platelet Volume 8.3 6.9-10.8 fL Neutrophils (%) (Auto) 80.2 H 37.0-80.0 % Lymphocytes (%) (Auto) 14.8 10.0-50.0 % Monocytes (%) (Auto) 4.3 0.0-12.0 % Eosinophils (%) (Auto) 0.3 0.0-7.0 % Basophils (%) (Auto) 0.4 0.0-2.0 % Neutrophils # (Auto) 18.0 H 1.6-8.6 10 ^3/uL Lymphocytes # (Auto) 3.3 0.4-5.4 10 ^3/uL Monocytes # (Auto) 1.0 0-1.3 10 ^3/uL Eosinophils # (Auto) 0.1 0-0.8 10 ^3/uL Basophils # (Auto) 0.1 0-0.2 10 ^3/uL Nucleated Red Blood Cells 0.0 % Prothrombin Time 10.2 9.3-11.8 sec Prothrombin Time INR 0.96 0.9-1.15 Activated Partial Thromboplast Time 23.8 L 24.5-34.5 SEC Sodium Level 140 136-145 mmol/L Potassium Level 3.8 3.5-5.1 mmol/L Chloride Level 106 98-107 mmol/L Carbon Dioxide Level 23 20-31 mmol/L Anion Gap 11 5-15 Blood Urea Nitrogen 8 L 9-23 mg/dL Creatinine 0.60 0.550-1.02 mg/dL Glomerular Filtration Rate Calc 127 >90 mL/min BUN/Creatinine Ratio 13.3 10.0-20.0 Serum Glucose 151 H 74-106 mg/dL Calcium Level 9.0 8.7-10.4 mg/dL Beta HCG, Quantitative 355.1 H 1.5-4.2 mIU/mL Assessment/Plan Assessment/Plan 24-year-old female with recent miscarriage, now presenting with heavy vaginal bleeding, clot passage, and elevated inflammatory markers concerning for incomplete with blood loss. acute Suspected Incomplete Vaginal clot passage and pain RELIGIOUS STUDIES PROFESSOR removed clot manually in ED hCG 355.1 Awaiting pelvic ultrasound for retained products Plan: Admit to [facility] RELIGIOUS STUDIES PROFESSOR to follow Monitor bleeding and vitals closely Transfuse additional blood if clinically indicated Consider repeat ultrasound if bleeding persists Prepare for possible D&C depending on imaging findings Acute Blood Loss Anemia Received 1 unit PRBC in ED Ongoing vaginal bleeding Plan: Monitor H/H q68h Type & crossmatch Transfuse if Hgb < 7 or symptomatic acute Leukocytosis / Risk of Infection WBC 22.4, possibly stress-related or early infection Plan: Start empiric IV antibiotics ( Zosyn) Monitor for fevers, chills, or purulent discharge Reassess WBC trends acute Dehydration / Elevated Lactate Likely related to volume loss or stress Lactate 5.0 Plan: IV normal saline 100 mL/hr Monitor lactate clearance Daily BMP Problem List with recent miscarriage FEN / PROPHYLAXIS (PPx) Fluids/Electrolytes/Nutrition IV NS 100 mL/hr NPO until RELIGIOUS STUDIES PROFESSOR evaluates; clear liquids if stable DVT Prophylaxis SCDs while bleeding ongoing Hold pharmacologic prophylaxis due to active bleeding GI Prophylaxis no gi ppx since no hx of gerds or gi bleed DISPOSITION Admit to [facility] for continued monitoring of bleeding, workup for incomplete , anemia management, and RELIGIOUS STUDIES PROFESSOR coordination. Evaluate need for D&C pending imaging and clinical course. Plan discussed with: Patient My Orders Orders - FANY VELÁZQUEZ DNP Procedure Category Date Status Time Admit ADMIT 02/26/25 Transmitted 14:26 Allergies [facility] 02/26/25 In Process 14:26 Code Status CODE 02/26/25 Transmitted 14:26 Sodium Chloride 0.9% PHA 02/26/25 Logged 14:30 Ondansetron Hcl PHA 02/26/25 Logged (Zofran) 14:30 Docusate Sodium PHA 02/26/25 Logged Capsule (Colace 14:30 Complete Blood Count LAB 02/27/25 Verified 04:00 Comprehensive LAB 02/27/25 Verified Metabolic Panel 04:00 Npo (Nothing By DIET 02/26/25 Transmitted Mouth) Diet Dinner Condition: Stable [facility] 02/26/25 In Process 14:26 BRP [facility] 02/26/25 In Process 14:26 Morphine Sulfate PHA 02/26/25 Logged Injection 14:30 Sequential [facility] 02/26/25 In Process Compression Device Nitroglycerin PHA 02/26/25 Logged Sublingual (Ntrostat 14:30 Stat Ekg For Chest [facility] 02/26/25 In Process Pain 14:26 Notify Md Of Changes [facility] 02/26/25 In Process From Base 14:26 Hose Mender For [facility] [employer] [facility] 02/26/25 In Process 24 Hours 14:26 Emergency Dysrhythmia [facility] 02/26/25 In Process Protocol 14:26 Rhythm Strips Once [facility] 02/26/25 In Process Every Shift 14:26 Oxygen By Nasal RT 02/26/25 Transmitted Cannula 14:26 Hemoglobin & LAB 02/26/25 Logged Hematocrit 18:00 Hemoglobin & LAB 02/27/25 Verified Hematocrit 00:00 Hemoglobin & LAB 02/27/25 Verified Hematocrit 06:00 Hemoglobin & LAB 02/27/25 Verified Hematocrit 12:00 Hemoglobin & LAB 02/27/25 Verified Hematocrit 18:00 Piperacillin-Tazob PHA 02/26/25 Logged 3.375gm (Zosyn 3.375g 18:00 Piperacillin-Tazob PHA 02/26/25 Logged 3.375gm (Zosyn 3.375g 14:30 Lactic Acid W/ Reflex LAB 02/26/25 Verified Order 14:33 Date of Service: February 26, 2025 Billing Provider: FANY VELÁZQUEZ DNP Common Visit Codes: [id number] INP/OBS CARE (HIGH), [id number] CARE 30- 74 MIN (Total critical care time: Approximately 45 minutes This critical care time included obtaining a history; examining the patient; pulse oximetry; ordering and review of studies; arranging urgent treatment with development of a management plan; evaluation of patient's response to treatment; frequent reassessment; and, discussions with other providers.) FANY VELÁZQUEZ DNP February 26, 2025 14:34
--- NOTE | 2025-02-26 14:39 | DVHINCON2 ---
Date of service: February 26, [address] cleveland Reason for Consultation sab in progress History of Present Illness pt is being seen in er c/o heavy vag bleeding.she was hypotensive passing blood clots her bhcg on 02-18 was 355 but it appears to havce compeleted sab Past Medical History na Past Surgical History na Family History na Social History na Allergies: Coded Allergies: NO KNOWN ALLERGIES (Unverified , 09/19/18) Home Meds Reported Medications Acetaminophen (Tylenol) 325 Mg Tb, 325 MG PO PRN for headache 01/16/19 Vit W/ Ferrous Fumara ( One Daily) Daily Tab, 1 TAB PO DAILY, #90 TAB 3 Refills 12/28/18 Review of Systems Constitutional: no fever, chill, weight loss HEENT: no eye pain, no hearing loss, no oral lesion, no scleral icterus Heart: no chest pain, no chest pressure Lung: no cough, no dyspnea with exertion Abdomen: see HPI : no pain with urination, normal appearing urine Musculoskeletal: no joint pain, no muscle pain Neurological: no seizure, no loss of sensation, no weakness in extremities Pysch: no depression, no anxiety Derm: no rash, no jaundice Vital Signs Vital Signs Date Time Temp Pulse Resp B/P (MAP) Pulse Ox O2 Delivery O2 Flow Rate FiO2 02/26/25 12:15 98.5 124 18 95/51 98.5 02/26/25 09:17 Room Air* 0 21 02/26/25 09:17 100 Physical Exam SKIN: [pale] HEENT: [nl NECK: [nl CARDIAC: [tachy rate] PULMONARY: [cta] ABDOMEN: [soft ,nt ] MUSCULOSKELETAL: [nl ] NEURO: [nl pelvci -some blood clots evacuated from vag ,cx open ,no tissue noted,not actively bleeding anymore some tissue evacuated among the blood clot] Labs/Diagnostic Data Labs Test 02/26/25 10:22 02/26/25 08:56 Range/Units Lactic Acid Level 5.0 *H 0.4-2.0 mmol/L White Blood Count 22.4 H 4.4-10.8 10^3/uL Red Blood Count 3.97 L 4.0-5.20 10^6/uL Hemoglobin 12.3 12.2-16.2 g/dL Hematocrit 35.9 L 36.0-46.0 % Mean Corpuscular Volume 90.4 80.0-100.0 fL Mean Corpuscular Hemoglobin 31.0 28.0-32.0 pg Mean Corpuscular Hemoglobin Concent 34.3 32.0-36.0 g/dL Red Cell Distribution Width 12.7 11.8-14.3 % Platelet Count 376 140-450 10^3/uL Mean Platelet Volume 8.3 6.9-10.8 fL Neutrophils (%) (Auto) 80.2 H 37.0-80.0 % Lymphocytes (%) (Auto) 14.8 10.0-50.0 % Monocytes (%) (Auto) 4.3 0.0-12.0 % Eosinophils (%) (Auto) 0.3 0.0-7.0 % Basophils (%) (Auto) 0.4 0.0-2.0 % Neutrophils # (Auto) 18.0 H 1.6-8.6 10 ^3/uL Lymphocytes # (Auto) 3.3 0.4-5.4 10 ^3/uL Monocytes # (Auto) 1.0 0-1.3 10 ^3/uL Eosinophils # (Auto) 0.1 0-0.8 10 ^3/uL Basophils # (Auto) 0.1 0-0.2 10 ^3/uL Nucleated Red Blood Cells 0.0 % Prothrombin Time 10.2 9.3-11.8 sec Prothrombin Time INR 0.96 0.9-1.15 Activated Partial Thromboplast Time 23.8 L 24.5-34.5 SEC Sodium Level 140 136-145 mmol/L Potassium Level 3.8 3.5-5.1 mmol/L Chloride Level 106 98-107 mmol/L Carbon Dioxide Level 23 20-31 mmol/L Anion Gap 11 5-15 Blood Urea Nitrogen 8 L 9-23 mg/dL Creatinine 0.60 0.550-1.02 mg/dL Glomerular Filtration Rate Calc 127 >90 mL/min BUN/Creatinine Ratio 13.3 10.0-20.0 Serum Glucose 151 H 74-106 mg/dL Calcium Level 9.0 8.7-10.4 mg/dL Beta HCG, Quantitative 355.1 H 1.5-4.2 mIU/mL Primary Diagnosis sab in progress appears to be compelet ab now 2' Diagnosis/Comorbidities hypotension due to blood loss Plan pt is recieving PRBC AND WAS STARTED ON IVF WITH 30 UNITS OF PITOCIN PT TO BE STARTED ON ANCEF ,OBTAIN SONO AND MAY BE DCED HOME AFTERWARDS AND FU WITH ME IN FEW DAYS . THANK YOU FOR THIS CONSULTATION Plan discussed with: Patient Visit Coding OBGYN Date of Service: February 26, 2025 Billing Provider: TREMAINE BECERRA DO DERRICK BOAT LEVERMAN Common Visit Codes: [id number] INP/OBS CARE (HIGH) DERRICK BOAT LEVERMAN Consultation Codes: [id number] CONSULT <80MIN TREMAINE BECERRA DO February 26, 2025 14:39
--- NOTE | 2025-02-26 15:10 | DVH ---
OB ULTRASOUND <14 WEEKS: HISTORY: per dr daniel, transvaginal please TECHNIQUE: Multiple real-time grayscale sonographic images of the pelvis with duplex Doppler color fl ow, spectral and M-mode analysis. TRANSDUCERS: Transabdominal and transvaginal COMPARISON: US OB ULTRASOUND COMP LESS 14WKS on DOS: 02/18/25 FINDINGS: The uterus measures 8.5 x 4.8 x 4.4 cm. Endometrium measures 0.8 cm. The cervix is not visualized Right ovary measures 3.0 x 1.9 x 2.3 cm with normal Doppler color flow. Ovarian cyst measures 1.5 cm. Left ovary measures 3.2 x 2.4 x 2.7 cm with normal Doppler color flow. Left ovarian corpus luteal cys t measures 1.7 cm. IMPRESSION: Thickened appearance to the endometrium without vascularity. No definite sonographic findings to suggest retained products of conception.
[2025-02-26] MEDS: TRANEXAMIC ACID 1,000 MG in SODIUM CHL 0.9% 100 ML IV ONE (15:14)
[2025-02-26] MEDS: PIPERACILLIN-TAZOB 3.375GM 100 ML IV ONE (15:59)
[2025-02-26] MEDS: SODIUM CHLORIDE 0.9% 1,000 ML IV SCH (16:00)
[2025-02-26] MEDS: PIPERACILLIN-TAZOB 3.375GM 100 ML IV SCH (18:00)
[2025-02-26] MEDS: ceFAZolin 2 GM/D5W50ml 50 ML IV ONE (18:01)
[2025-02-26 18:49] LABS: Hematocrit 33.5 % (36.0-46.0); Hemoglobin 11.3 g/dL (12.2-16.2)
[2025-02-27] VITALS (40 sets, daily range): BP systolic 81–121; BP diastolic 41–74; PULSE 69–166; RESP 12–27; TEMP 98.3–99.3; O2SAT 96–100
[2025-02-27 00:36] LABS: Hematocrit 27.4 % (36.0-46.0); Hemoglobin 9.3 g/dL (12.2-16.2)
[2025-02-27 05:27] LABS: Hemoglobin 7.8 g/dL (12.2-16.2); Monocytes # (auto) 0.5 10 ^3/uL (0-1.3); Neutrophils # (auto) 5.8 10 ^3/uL (1.6-8.6); Platelet Count (auto) 191 10^3/uL (140-450)
[2025-02-27 05:29] LABS: Basophils # (auto) 0.1 10 ^3/uL (0-0.2); Basophils % (auto) 0.6 % (0.0-2.0); Eosinophils # (auto) 0.1 10 ^3/uL (0-0.8); Eosinophils % (auto) 0.6 % (0.0-7.0); Hematocrit 22.3 % (36.0-46.0); Lymphocytes # (auto) 2.8 10 ^3/uL (0.4-5.4); Lymphocytes % (auto) 30.2 % (10.0-50.0); Mean Corpuscular Hemoglobin 30.1 pg (28.0-32.0); Mean Corpuscular Hgb Conc. 34.9 g/dL (32.0-36.0); Mean Corpuscular Volume 86.2 fL (80.0-100.0); Monocytes % (auto) 5.9 % (0.0-12.0); Neutrophils % (auto) 62.7 % (37.0-80.0); Nucleated Red Blood Cells % 0.2 %; Red Blood Cells 2.59 10^6/uL (4.0-5.20); Red Cell Distribution Width 15.1 % (11.8-14.3); White Blood Cell 9.2 10^3/uL (4.4-10.8)
[2025-02-27 05:54] LABS: Alanine Aminotransferase 26 U/L (7-40); Anion Gap 8 (5-15); Aspartate Aminotransferase 22 U/L (13-40); BUN/Creatinine Ratio 10.9 (10.0-20.0); Bilirubin, Total 0.5 mg/dL (0.2-1.0); Carbon Dioxide 24 mmol/L (20-31); Glucose 96 mg/dL (74-106); Sodium 144 mmol/L (136-145)
[2025-02-27 06:03] LABS: Albumin 2.8 g/dL (3.2-4.8); Alkaline Phosphatase 40 U/L (46-116); Blood Urea Nitrogen 6 mg/dL (9-23); Calcium 7.8 mg/dL (8.7-10.4); Chloride 112 mmol/L (98-107); Total Protein 4.4 g/dL (5.7-8.2)
[2025-02-27] MEDS ORDERED: cefTRIAXone 1GM/50ML D5W 50 ML IV SCH (09:00)
--- NOTE | 2025-02-27 14:01 | DVHPN2 ---
Chief Complaints Patient reports: No new complaints, Feels better Nursing reports: No new complaints Objective Vitals Vital Signs Date Time Temp Pulse Resp B/P (MAP) Pulse Ox O2 Delivery O2 Flow Rate FiO2 02/27/25 08:15 98.4 91 20 104/50 98.4 Medications Current Medications Medications (Trade) Dose Ordered Sig/Anna Marie Route PRN Reason Start Time Stop Time Status Last Admin Docusate Sodium (Colace Capsule) 100 mg BIDPRN PRN PO FOR CONSTIPATION 02/26/25 14:30 Morphine Sulfate 2 mg Q4HPRN PRN IV SEVERE PAIN (7-10 PAIN SCALE) 02/26/25 14:30 Nitroglycerin (Ntrostat Sublingual) 0.4 mg Q5MINP PRN SL FOR CHEST PAIN 02/26/25 14:30 Ondansetron HCl (Zofran) 4 mg Q4HP PRN IV NAUSEA / VOMITING 02/26/25 14:30 Piperacillin Sod/ Tazobactam Sod 100 ml @ 25 mls/hr Q6HR IV 02/26/25 18:00 02/27/25 06:23 Sodium Chloride 1,000 ml @ 120 mls/hr Q8H20M IV 02/26/25 14:30 02/27/25 08:45 Head/Eyes: Normal Neck: Normal Lungs: Normal Cardiovascular: Normal Abdominal: Soft Extremities: Normal Studies Laboratory Tests 02/27/25 05:10 Test 02/27/25 05:10 Range/Units Serum Glucose 96 74-106 mg/dL Ass/Plan Assessment compelet ab anemia recieving blood transfusion Plan dc home after transfusion fu 1wk Visit Coding OBGYN Date of Service: February 27, 2025 Billing Provider: TREMAINE BECERRA DO ROLLER STAINER Common Visit Codes: 10672-SCR/OBS SAME DATE (HIGH), 41441-HGF/OBS DISCH DAY >30MIN TREMAINE BECERRA DO February 27, 2025 14:01
--- NOTE | 2025-02-27 14:02 | DVHDS2 ---
Physician Discharge Progress N Final Diagnosis: s/p sab,compelet ab anemia s/p transfusion Condition on Discharge: Good Disposition: Home Discharge Instructions: Diet: Regular Activity: Light activity Medications: [id number] Follow Up Care: Specialist: 1w Discharge Statement: "Patient was advised to return to the ER or call 911 if any headaches, dizziness, shortness of breath, chest pain, abdominal pain, bleeding, fevers, or worsening of medical condition. Patient was counseled about treatment plan, medications, possible side effects, patientverbalized understanding. All questions were answered to the best of my ability. This discharge took greater then 30 minutes in planning, reviewing documentation, counseling the patient, and discussing with other team members." Visit Coding OBGYN Date of Service: February 27, 2025 Billing Provider: TREMAINE BECERRA DO BUILDER OPERATOR Common Visit Codes: 62908-VGJ/OBS DISCH DAY >30MIN TREMAINE BECERRA DO February 27, 2025 14:02
--- NOTE | 2025-02-27 14:03 | DVHPN2 ---
Chief Complaints Patient reports: No new complaints, Feels better Nursing reports: No new complaints Objective Vitals Vital Signs Date Time Temp Pulse Resp B/P (MAP) Pulse Ox O2 Delivery O2 Flow Rate FiO2 02/27/25 08:15 98.4 91 20 104/50 98.4 Medications Current Medications Medications (Trade) Dose Ordered Sig/Anna Marie Route PRN Reason Start Time Stop Time Status Last Admin Docusate Sodium (Colace Capsule) 100 mg BIDPRN PRN PO FOR CONSTIPATION 02/26/25 14:30 Morphine Sulfate 2 mg Q4HPRN PRN IV SEVERE PAIN (7-10 PAIN SCALE) 02/26/25 14:30 Nitroglycerin (Ntrostat Sublingual) 0.4 mg Q5MINP PRN SL FOR CHEST PAIN 02/26/25 14:30 Ondansetron HCl (Zofran) 4 mg Q4HP PRN IV NAUSEA / VOMITING 02/26/25 14:30 Piperacillin Sod/ Tazobactam Sod 100 ml @ 25 mls/hr Q6HR IV 02/26/25 18:00 02/27/25 06:23 Sodium Chloride 1,000 ml @ 120 mls/hr Q8H20M IV 02/26/25 14:30 02/27/25 08:45 Head/Eyes: Normal Neck: Normal Lungs: Normal Cardiovascular: Normal Abdominal: Soft Extremities: Normal Studies Laboratory Tests 02/27/25 05:10 Test 02/27/25 05:10 Range/Units Serum Glucose 96 74-106 mg/dL Ass/Plan Assessment compelet ab anemia recieving blood transfusion Plan dc home aFTER TRANSFUSION Visit Coding OBGYN Date of Service: February 27, 2025 Billing Provider: TREMAINE BECERRA DO ASSOCIATE TRAINER Common Visit Codes: 35702-NNB/OBS DISCH DAY >30MIN TREMAINE BECERRA DO February 27, 2025 14:03
[2025-02-27 15:08] LABS: Urine Bacteria None Seen /hpf (None Seen)
[2025-02-27 15:40] LABS: Urine Blood 3+ /uL (Negative); Urine Clarity Clear (Clear); Urine Color Colorless (Yellow); Urine Protein, UAD Negative (Negative); Urine Specific Gravity 1.007 (1.001-1.035); Urine Squamous Epithelial Cell FEW /hpf (<5); Urine Urobilinogen Normal (Negative); Urine WBC 3 /HPF (0-5); Urine pH 7.5 (5.0-9.0)
[2025-02-27 16:39] LABS: Hematocrit 32.9 % (36.0-46.0); Hemoglobin 11.5 g/dL (12.2-16.2)
== END 2025-02-27 18:40 | disposition home or self-care (01) | DRG 564 ==
LOC: ER 08:32 → OVERFLOW 14:26
PROVIDERS: ADMIT Nurse Practitioner Family; ATTEND Nurse Practitioner Family
PROC: 30233N1 Transfusion of Nonautologous Red Blood Cells into Peripheral Vein, Percutaneous Approach (ICD-10-PCS; principal; 2025-02-26)
DX: O03.9 Complete or unspecified spontaneous abortion without complication (principal); D62 Acute posthemorrhagic anemia; E86.0 Dehydration; D72.829 Elevated white blood cell count, unspecified; Z79.899 Other long term (current) drug therapy
CPT/HCPCS: 36415; 76801; 76817; 80048; 80053; 81001; 83605; 84702; 85014; 85018; 85025; 85610; 85730; 86850; 86900; 86901; 86920; 87040; 96361; 96374; 99291; G0378; J2405; J2543; J2590

== ENCOUNTER 2025-08-20 13:15 | Emergency (ER) | payer MEDICAID ==
[~2025-08-20] VITALS: Ht 167.6 cm; Wt 82.8 kg
[2025-08-20 13:16] VITALS: TEMP 97.9
--- NOTE | 2025-08-20 14:13 | ED.PDOC ---
[facility] HPI Comments 25-year-old female who presents to the ED chief complaint of vaginal bleeding. Patient states that she is currently eight weeks , two aborta two miscarriage, who states she has been having vaginal bleeding with the associated spotting and abdominal cramping since earlier this a.m. patient states the blee ding is bright red blood denies any associated clots. Patient otherwise denies any other symptoms. Patient vitals otherwise stable in the ED. Chief Complaint: Vaginal Bleed Time Seen by MD: 14:11 Reviewed Notes: Nurses Notes, Medications Allergies: Coded Allergies: NO KNOWN ALLERGIES (Unverified , 09/19/18) Home Meds Reported Medications Acetaminophen (Tylenol) 325 Mg Tb, 325 MG PO PRN for headache 01/16/19 Vit W/ Ferrous Fumara ( One Daily) Daily Tab, 1 TAB PO DAILY, #90 TAB 3 Refills 12/28/18 Information Source: Patient Mode of Arrival: Ambulatory Brought in by: Self Timing: Hours Past Medical History PAST MEDICAL HISTORY: Denies Surgical History: Denies all surgeries ENVIRONMENTAL AID History: No Pertinent ENVIRONMENTAL AID History Family History Family History: Unobtainable Social History Smoker: Non-Smoker Alcohol: Denies ETOH Use Drugs: Denies Drug Use Lives In: Home Constitutional: denies: chills, diaphoresis, fatigue, fever, malaise, sweats, weakness, others EENTM: denies: blurred vision, double vision, ear bleeding, ear discharge, ear drainage, ear pain, ear ringing, eye pain, eye redness, hearing loss, mouth pain, mouth swelling, nasal discharge, nose bleeding, nose congestion, nose pain, photophobia, tearing, throat pain, throat swelling, voice changes, others Respiratory: denies: cough, hemoptysis, orthopnea, SOB at rest, shortness of breath, SOB with excertion, stridor, wheezing, others Cardiovascular: denies: chest pain, dizzy spells, diaphoresis, Dyspnea on exertion, edema, irregular heart beat, left arm pain, lightheadedness, palpitations, PND, syncope, others Gastrointestinal: reports: abdominal pain; denies: abdomen distended, blood streaked bowels, constipated, diarrhea, dysphagia, difficulty swallowing, hematemesis, melena, nausea, poor appetite, poor fluid intake, rectal bleeding, rectal pain, vomiting, others Genitourinary: reports: abnormal vagina bleeding; denies: burning, dyspareunia, dysuria, flank pain, frequency, hematuria, incontinence, pain, , vagina discharge, urgency, others Neurological: denies: dizziness, fainting, headache, left sided numbness, left sided weakness, numbness, paresthesia, pre-existing deficit, right sided numbness, right sided weakness, seizure, speech problems, tingling, tremors, weakness, others Musculoskeletal: denies: back pain, gout, joint pain, joint swelling, muscle pain, muscle stiffness, neck pain, others Integumetry: denies: bruises, change in color, change in hair/nails, dryness, laceration, lesions, lumps, rash, wounds, others Allergic/Immunocompromised: denies: Difficulty Healing, Frequent Infections, Hives, Itching, others Hematologic/Lymphatic: denies: anemia, blood clots, easy bleeding, easy bruising, swollen glands, others Endocrine: denies: excessive hunger, excessive sweating, excessive thirst, excessive urination, flushing, intolerance to cold, intolerance to heat, unexplained weight gain, unexplained weight loss, others Psychiatric: denies: anxiety, bipolar disorder, depression, hopeless, panic disorder, schizophrenia, sleepless, suicidal, others All Other Systems: Reviewed and Negative Physical Exam General Appearance: Moderate Distress HEENT: Normal ENT Inspection, Pharynx Normal, TMs Normal Neck: Full Range of Motion, Non-Tender, Normal, Normal Inspection Respiratory: Chest Non-Tender, Lungs Clear, No Accessory Muscle Use, No Respiratory Distress, Normal Breath Sounds Cardiovascular: No Edema, No JVD, No Murmur, No Gallop, Normal Peripheral Pulses, Regular Rate/Rhythm Breast Exam: Deferred Gastrointestinal: No Organomegaly, Non Tender, No Pulsatile Mass, Normal Bowel Sounds, Soft Genitalia: Deferred Pelvic: Deferred Rectal: Deferred Extremities: No calf tenderness, Normal capillary refill, Normal inspection, Normal range of motion, Non-tender, No pedal edema Musculoskeletal : Apperance: Normal Neurologic: Alert, community board member II-XII nml as Tested, No Motor Deficits, Normal Affect, Normal Mood, No Sensory Deficits Cerebellar Function: Normal Reflexes: Normal Skin: Dry, Normal Color, Warm Peripheral Pulses: 3+ Radial (R), 3+ Radial (L) Lymphatic: No Adenopathy Was a procedure done? Was a procedure done?: No Differential Diagnosis (ENVIRONMENTAL AID) Vaginal Bleeding: - Inevitable, - Missed, - Threatened, Blood Loss Anemia, Cervicitis, PID, UTI, Other (Current , subchorionic hemorrhage) X-Ray, Labs, Meds, VS Vital Signs Date Time Temp Pulse Resp B/P (MAP) Pulse Ox O2 Delivery O2 Flow Rate FiO2 08/20/25 13:16 97.9 85 17 139/94 98 97.9 Lab Test 08/20/25 14:41 08/20/25 14:31 Range/Units Beta HCG, Quantitative 29133.3 H 1.5-4.2 mIU/mL Urine Color Yellow Yellow Urine Clarity Turbid H Clear Urine pH 6.0 5.0-9.0 Urine Specific Uledi 1.035 1.001-1.035 Urine Protein 1+ H Negative Urine Ketones 1+ H Negative Urine Blood 1+ H Negative /uL Urine Nitrite Negative Negative Urine Bilirubin Negative Negative Urine Urobilinogen Normal Negative mg/dL Urine Leukocyte Esterase Trace Negative /uL Urine RBC 13 0 - 4 /hpf Urine Microscopic WBC 4 0-5 /HPF Urine Squamous Epithelial Cells Mod <5 /hpf Urine Bacteria None seen None Seen /hpf Urine Mucus Few None Seen Urine Glucose Normal Normal mg/dL Patient alert. Complaining of vaginal bleeding. Vitals stable. Answering questions. Ketones in urine. Establish intravenous access. Was given fluids. Urinalysis shows UTI. Was given prescription of Keflex antibiotic. Explained to the patient. Was told to follow up with her primary care physician. Was told to come back if there is any problem. Time of 1ST Reevaluation: 14:40 Reevaluation 1ST: Unchanged Patient Education/Counseling: Diagnosis, Treatment Family Education/Counseling: No Family Present Departure 1 Departure Time of Disposition: 17:04 Impression: Primary Impression: Dehydration Additional Impression: Urinary tract infection Qualified Codes: N30.00 - Acute cystitis without hematuria Disposition: 01 HOME / SELF CARE / HOMELESS Condition: Good e-Prescriptions Cephalexin Monohydrate (Cephalexin) 500 Mg Cap 1 CAP PO QID for 5 Days, #20 CAP Prov: SOLOMON VELASQUEZ MD 08/20/25 Discharged With: Self Critical Care Note Critical Care Time?: No Stability Stability form required: No Heart Score Heart Score: Heart Score Response (Comments) Value History N/A 0 EKG N/A 0 Age N/A 0 Risk Factors N/A 0 Troponin N/A 0 Total 0 I personally scribed for SOLOMON VELASQUEZ MD ([email or web address]) on 08/20/25 at 14:13. Electronically submitted by Chema Bates ([facility] SOLOMON VELASQUEZ MD Aug 20, 2025 14:13
[2025-08-20 14:41] LABS: Urine Protein, UAD 1+ (Negative)
[2025-08-20] MEDS ORDERED: CEPH500C PO (17:06)
--- NOTE | 2025-08-20 20:26 | DVH ---
EXAM: OB LESS THAN 14 WEEKS HISTORY: Bleeding COMPARISON: None TECHNIQUE: Transabdominal and transvaginal imaging was utilized. Grayscale and color doppler evaluation. Images were stored in the patient's permanent medical record. FINDINGS: UTERUS: 8.6 x 4.9 x 6.2 cm. Gestational sac measures 2.3 cm corresponding with 7 weeks and 0 days. heart rate 150 beats per minute. pole measures 1.5 cm corresponding with 8 weeks and 0 days. Estimated due date 04/04/26. Question adjacent to the gestational sac possible subchorionic hemorrhage measuring 1.5 x 0.8 x 1.5 cm. RIGHT OVARY: 3.5 x 2 x 2.6 cm. Normal vascularity. No suspicious masses or cysts. LEFT OVARY: 3.4 x 2 x 2.6 cm. Normal vascularity. Question left ovarian complex structure which may be related to corpus luteum. OTHER: No free fluid is identified. IMPRESSION: 1. Single viable gestation with normal cardiac activity and anatomy as above. 2. Question adjacent to the gestational sac possible subchorionic hemorrhage measuring up to 1.5 cm. N CHOI
[2025-08-20 21:00] VITALS: O2SAT 98
[2025-08-20 22:50] VITALS: BP 112/86; PULSE 88; RESP 18; O2SAT 98
== END 2025-08-20 23:12 | disposition home or self-care (01) ==
LOC: ER 13:15
DX: O23.41 Unspecified infection of urinary tract in pregnancy, first trimester (principal); N39.0 Urinary tract infection, site not specified; O26.891 Other specified pregnancy related conditions, first trimester; E86.0 Dehydration; Z3A.08 8 weeks gestation of pregnancy
CPT/HCPCS: 36415; 76801; 81001; 84702